=== PATIENT | female | born 1985 ===

== ENCOUNTER 2025-05-29 11:24 | Outpatient (REF) | payer MEDICAID, SELFPAY ==
--- OUTSIDE RECORDS SUMMARY | 2025-05-29 14:20 | XMS_ITS | Encounter Summary ---
Author Organization [employer] Address [address] [facility] [address] [place] [address] Care Team Providers Care Lead Qa Analyst Name Role Phone Unavailable Primary Care Provider Unavailabl e Encounter Details Date Type Department Care Team (Late st Contact Info) Description 05/29/2025 2:20 PM EDT Office Visit [facility] [address] [place] [address] Micki Flynn MD [address] [place] [address] Vaginal discharge; Vaginal itching Social History Tobacco Use Types Packs/Day Years Used Date Smoking Tobacco: Never Passive Smoke Exposure: Never Smokeless Tobacco: Never Tobacco Cessation:Counseling Given: Not Answered Comments Unknown Sex and Gender Information Value Date Recorded Sex Assigned at Female 05/29/2025 1:31 PM EDT Legal Sex Female 11:54 AM EDT Gender Identity Female 05/29/2025 1:31 PM EDT Sexual Orientation Straight 05/29/2025 1: 31 PM EDT documented as of this encounter Last Filed Vital Signs Vital Sign Reading Time Taken Comments Blood Pressure 126/82 05/29/2025 2:25 PM EDT man ually Pulse 77 05/29/2025 2:21 PM EDT Temperature 36.7 C (98.1 F) 05/29/2025 2:21 PM EDT Respiratory Rate 19 05/29/2025 2:21 PM EDT Oxygen Saturation 97% 05/29/2025 2:21 PM EDT Inhaled Oxygen Concentration - - Weight 87.7 kg (193 lb 4 oz) 05/29/2025 2:21 PM EDT Height 162.6 cm (5' 4 ) 05/29/2025 2:21 PM EDT Body Mass Index 33.17 05/29/2025 2:21 PM EDT documented in this encounter Progress Notes * Micki Mayo MD - 05/29/2025 2:20 PM EDT SUBJECTIVE: Amberly Noland is a 39 y.o. year old female who presents for acute visit . Amberly Noland, 39 years Vaginal Discharge and Itching - Persistent vaginal discharge requiring daily use of panty liners - Discharge described as white, turning pink for the past 4-5 days - Itching in the genital area, particularly on the outer parts - No malodor reported - No recent sexual activity for the past month - Increased frequency of urination previously, now decreased - Holds urine due to work circumstances, leading to discomfort when urinating - No burning sensation during urination - No lower back or abdominal pain - Mild pain experienced today, similar to menstrual cramps, possibly indicating the onset of menstruation Social History Social History Narrative Not on file Problem List[1] Family History[2] Review of Systems Constitutional: Negative. HENT: Negative. Respiratory: Negative. Cardiovascular: Negative. Genitourinary: Positive for vaginal discharge. Negative for decreased urine volume, difficulty urinating, dyspareunia, dysuria, enuresis, flank pain, frequency, genital sores, hematuria, menstrual problem, pelvic pain, urgency, vaginal bleeding and vaginal pain. OBJECTIVE: Vitals: 05/29/25 1421 05/29/25 1425 BP: (!) 154/85 126/82 BP Location: Left arm Right arm Patient Position: Sitting Sitting BP Cuff Size: Large adult Large adult Pulse: 77 Resp: 19 Temp: 98.1 ??F (36.7 ??C) TempSrc: Oral SpO2: 97% Weight: 193 lb 4 oz (87.7 kg) Height: 5' 4 (1.626 m) Physical Exam Follow Up: No follow-ups on file. Medications Ordered Prior to Encounter[3] Problem List Items Addressed This Visit Vaginal discharge Relevant Medications fluconazole (Diflucan) 150 MG tablet Other Relevant Orders Chlamydia/N. Gonorrhoeae RNA, TMA, Vaginal Bacterial Vaginosis POCT urinalysis dipstick manually resulted (CPT 94136) (Completed) Culture, Urine, Routine POCT , urine manually resulted (Completed) Other Visit Diagnoses Vaginal itching Relevant Medications fluconazole (Diflucan) 150 MG tablet Other Relevant Orders Chlamydia/N. Gonorrhoeae RNA, TMA, Vaginal Bacterial Vaginosis Vaginal discharge: - Vaginal discharge with pruritus and irritation likely due to fungal infection. - Prescribed antifungal medication, two tablets to be taken: one today and the second after three days. Urinalysis and marginal action test ordered; results to be reviewed and patient to be notified if further medication is needed. Vaginal itching: - Vaginal pruritus and irritation consistent with fungal infection. - Prescribed antifungal medication as above. Will notify patient if test results indicate need for additional treatment. This note was drafted using [employer] ([employer]) technology. The patient/patient's guardian has been informed and has consented to the use of this technology: Yes [1] Patient Active Problem List Diagnosis Vaginal discharge [2] No family history on file. [3] No current outpatient medications on file prior to visit. No current facility-administered medications on file prior to visit. documented in this encounter Plan of Treatment Scheduled Orders Name Type Priority Associated Diagnoses Orde r Schedule Culture, Urine, Routine Microbiology Routine Vaginal discharge Ordered: 05/29/2025 documented as of this encounter Procedures Procedure Name Priority Date/Time Associated Diagnosis Comments BACTERIAL VAGINOSIS PANEL Routine 05/29/2025 2:42 PM EDT Vaginal discharge Vaginal itching CHLAMYDIA/N. GONORRHOEAE RNA, TMA, UROGENITAL Routine 05/29/2025 2:42 PM EDT Vaginal discharge Vaginal itching POCT URINALYSIS DIPSTICK Routine 05/29/2025 2:38 PM EDT Vaginal discharge POCT , URINE Routine 05/29/2025 2:37 PM EDT Vaginal discharge documented in this encounter Results * (ABNORMAL) Bacterial Vaginosis (05/29/2025 2:42 PM EDT) TRICHOMONAS VAGINALIS DETECTION BY PCR NOT DETECTED Not Detect [facility] BACTERIAL VAGINOSIS DETECTION BY PCR NEGATIVE Negative [facility] Comment:The BV organism targ ets of the Xpert Xpress MVP test can becommensal in women; Xpert Xpress MVP positive results forbacterial vaginosis should be considered in conjunction withother clinical and patient information to determine thedisease status. Organisms that are not detected by the XpertXpress MVP test have also been reported to be associatedwith BV and aerobic vaginitis.The Xpert Xpress MVP test performance has not been evaluatedin patients under the age of 14. DAIJA GROUP DETECTION BY PCR DETECTED(A) Not Detect [facility] Daija glab krusei PCR NOT DETECTED Not Detect [facility] Swab Vaginal structure / Unknown 05/29/2025 2:42 PM EDT 05/30/2025 11:24 AM EDT Micki Mayo MD LAB MICROBIOLOGY - NERAL ORDERABLES Final Result [facility] [address] [place] [phone] * Chlamydia/N. Gonorrhoeae RNA, TMA, Vaginal (05/29/2025 2:42 PM EDT) CT PCR NOT DETECTED Not Detect. [facility] Comment:A not detected test result does not exclude the possibilityof infection because test results can be affected byimproper specimen collection, concurrent antibiotic therapy,or the number of organisms in the specimen which may bebelow the sensitivity of the test. As with many diagnostictests, results from the Xpert CT/NG assay should beinterpreted in conjunction with other laboratory andclinical data available to the clinician.Xpert CT/NG performance has not been evaluated in patientsless than 14 years of age. The assay should not be used forthe evaluationof suspected sexual abuse or for other medico-legalindications. Additional testing is recommended in anycircumstance when false positive or false negative resultscould lead to adverse medical, social or psychologicalconsequences. NG PCR NOT DETECTED Not Detect. [facility] Comment:A not detected test result does not exclude the possibilityof infection because test results can be affected byimproper specimen collection, concurrent antibiotic therapy,or the number of organisms in the specimen which may bebelow the sensitivity of the test. As with many diagnostictests, results from the Xpert CT/NG assay should beinterpreted in conjunction with other laboratory andclinical data available to the clinician.Xpert CT/NG performance has not been evaluated in patientsless than 14 years of age. The assay should not be used forthe evaluationof suspected sexual abuse or for other medico-legalindications. Additional testing is recommended in anycircumstance when false positive or false negative resultscould lead to adverse medical, social or psychologicalconsequences. Swab (Vaginal Swab) 05/29/2025 2:42 PM EDT 05/30/2025 11:24 AM EDT Micki Mayo MD LAB MICROBIOLOGY - [facility] ORDERABLES Final Result [facility] [address] [place] [phone] * (ABNORMAL) POCT urinalysis dipstick manually resulted (CPT 12372) (05/29/2025 2:38 PM EDT) Color, UA Yellow Clarity, UA Clear Glucose, UA Negative Bilirubin, UA Negative Ketones, UA Negative Spec Grav, UA 1.025 Blood, UA Positive(A) Negative, None Detected Comment:[id number] pH, UA 6.5 Protein, UA Negative Urobilinogen, UA 0.2 Leukocytes, UA Negative Negative, Rare, Trace Nitrite, UA Negative Negative, None Detected Appearance, UA ok Urine (Urine, Random) 05/29/2025 2:38 PM EDT Micki Mayo MD POINT OF CARE TEST EN TER/EDIT ORDERABLES Final Result * POCT , urine manually resulted (05/29/2025 2:37 PM EDT) Preg Test, Ur Negative Negative, Indeterminate, None Detected, Invalid, Specimen unsatisfactory for evaluation, Weakly Positive, 2+ Urine 05/29/2025 2:37 PM EDT us Micki Mayo MD POINT OF CARE TEST EN TER/EDIT ORDERABLES Final Result documented in this encounter Visit Diagnoses Diagnosis Vaginal discharge Leukorrhea, not specified as infective Vaginal itching Pruritus of genital organs documented in this encounter
[2025-05-30 13:22] LABS: Bacterial Vaginosis PCR NEGATIVE (Negative); Candida Group PCR DETECTED (Not Detect); Candida glab krusei PCR NOT DETECTED (Not Detect); Trichomonas vaginalis PCR NOT DETECTED (Not Detect)
[2025-05-30 13:53] LABS: CT PCR NOT DETECTED (Not Detect.); NG PCR NOT DETECTED (Not Detect.)
--- OUTSIDE RECORDS SUMMARY | 2025-05-30 14:39 | XMS_ITS | Encounter Summary ---
Author Organization [employer] [facility] Address [address] [place] [address] [address] [place] [address] Care Team Providers Care Cafeteria Assistant Name Role Phone Unavailable Primary Care Provider Unavailabl e Encounter Details Date Type Department Care Team (Latest Contact Info) Description 05/29/2025 Travel Social History Tobacco Use Types Packs/Day Years Used Date Smoking Tobacco: Never Passive Smoke Exposure: Never Smokeless Tobacco: Never Comments Unknown Sex and Gender Information Value Date Recorded Sex Assigned at Female 05/29/2025 1:31 PM EDT Legal Sex Female 11:54 AM EDT Gender Identity Female 05/29/2025 1:31 PM EDT Sexual Orientation Straight 05/29/2025 1: 31 PM EDT documented as of this encounter Plan of Treatment Not on file documented as of this encounter Visit Diagnoses Not on filedocumented in this encounter
--- OUTSIDE RECORDS SUMMARY | 2025-05-30 14:39 | XMS_ITS | Clinical Summary ---
Author Organization [employer] Address [address] [place] [address] [address] [place] [address] Care Team Providers Care Apartment Leasing Manager Name Role Phone Unavailable Primary Care Provider Unavailabl e Allergies No known active allergies Medications fluconazole (Diflucan) 150 MG tabletIndicatio ns:Vaginal discharge,Vagin al itching Take one tablet then after 72 hours take another tablet 2 tablet 05/29/2025 Active Active Problems Problem Noted Date Diagnosed Date Vaginal discharge 05/29/2025 Encounters Date Type Department Care Team Description 05/29/2025 2:20 PM EDT Office Visit [facility] [address] [place] [phone] Micki Flynn MD Vaginal discharge; Vaginal itching 05/29/2025 Travel from Last 3 Months Social History Tobacco Use Types Packs/Day Years Used Date Smoking Tobacco: Never Passive Smoke Exposure: Never Smokeless Tobacco: Never Tobacco Cessation:Counseling Given: Not Answered Comments Unknown Sex and Gender Information Value Date Recorded Sex Assigned at Female 05/29/2025 1:31 PM EDT Legal Sex Female 11:54 AM EDT Gender Identity Female 05/29/2025 1:31 PM EDT Sexual Orientation Straight 05/29/2025 1: 31 PM EDT Last Filed Vital Signs Vital Sign Reading [...] Mass Index 33.17 05/29/2025 2:21 PM EDT Plan of Treatment Health Maintenance Due Date Last Done Comments Depression Screening 1985 HIV Screening 1985 SDOH Screening 1985 Disability Screening 1985 Alcohol/Substance Use Screening 1997 Family Planning (PISQ) 2000 HPV Vaccines (1 - 3-dose series) 2000 Hepatitis C Screening 2003 DTaP/Tdap/Td Vaccines (1 - Tdap) 2004 Hepatitis B Vaccines (1 of 3 - 19+ 3-dose series) 2004 Pap Smear 2006 Cervical Cancer Screening 2015 HPV/Cotest 2015 COVID-19 Vaccine (1 - 2023-2 5 season) 2025 Influenza Vaccine (#1) 2025 Tobacco Screening 05/29/2026 05/29/2025 Zoster Vaccines (1 of 2) 2035 RSV Patients and Pa tients Aged 60 years or older (1 - 1-dose 75+ series) 2060 HIB Vaccines Aged Out No longer eligi ble based on patient's age to complete this topic Hepatitis A Vaccines Aged Out No long er eligible based on patient's age to complete this topic IPV Vaccines Aged Out No longer eligi ble based on patient's age to complete this topic Meningococcal B Vaccine Aged Out No l onger eligible based on patient's age to complete this topic Meningococcal Vaccine Aged Out No salvatore becka eligible based on patient's age to complete this topic Pneumococcal Vaccine: Pediat rics (0 to 5 Years) and At-Risk Patients (6 to 49) Years Aged Out No longer eligi ble based on patient's age to complete this topic RSV under 20 months Aged Out No longe r eligible based on patient's age to complete this topic Rotavirus Vaccines Aged Out No longer eligible based on patient's age to complete this topic Procedures Procedure Name Priority Date/Time Associated Diagnosis Comments BACTERIAL VAGINOSIS PANEL Routine 05/29/2025 2:42 PM EDT Vaginal discharge Vaginal itching CHLAMYDIA/N. GONORRHOEAE RNA, TMA, UROGENITAL Routine 05/29/2025 2:42 PM EDT Vaginal discharge Vaginal itching POCT URINALYSIS DIPSTICK Routine 05/29/2025 2:38 PM EDT Vaginal discharge POCT , URINE Routine 05/29/2025 2:37 PM EDT Vaginal discharge from Last 3 Months Results * (ABNORMAL) Bacterial Vaginosis (05/29/2025 2:42 PM EDT) TRICHOMONAS VAGINALIS DETECTION BY PCR NOT DETECTED Not Detect [facility] BACTERIAL VAGINOSIS DETECTION BY PCR NEGATIVE Negative [facility] Comment:The BV organism targ ets of [...] evaluatedin patients under the age of 14. NINI GROUP DETECTION BY PCR DETECTED(A) Not Detect [facility] Nini glab krusei PCR NOT DETECTED Not Detect [facility] Swab Vaginal structure / Unknown 05/29/2025 2:42 PM EDT 05/30/2025 11:24 AM EDT us Micki Mayo MD LAB MICROBIOLOGY - NERAL ORDERABLES Final Result [facility] [address] [place] [phone] * Chlamydia/N. Gonorrhoeae RNA, TMA, Vaginal (05/29/2025 2:42 PM EDT) CT PCR NOT DETECTED Not Detect. [facility] Comment:A not detected test result does [...] psychologicalconsequences. NG PCR NOT DETECTED Not Detect. [facility] Comment:A not detected test result does [...] 2:42 PM EDT 05/30/2025 11:24 AM EDT us Micki Mayo MD LAB MICROBIOLOGY - NERAL ORDERABLES Final Result [facility] [address] [place] [phone] * (ABNORMAL) POCT urinalysis dipstick manually resulted (CPT 34774) (05/29/2025 2:38 PM EDT) Color, UA Yellow [...] Positive, 2+ Urine 05/29/2025 2:37 PM EDT Micki Mayo MD POINT OF CARE TEST EN TER/EDIT ORDERABLES Final Result from Last 3 Months Insurance [facility] FULL
== END 2025-05-29 11:25 | disposition home or self-care (01) ==
LOC: HO.HHCLNP 11:24
PROVIDERS: Visit Provider Internal Medicine
DX: N89.8 Other specified noninflammatory disorders of vagina (principal); Z20.2 Contact with and (suspected) exposure to infections with a predominantly sexual mode of transmission
CPT/HCPCS: 81515; 87086; 87491; 87591